=== PATIENT | female | born 1960 | race Caucasian/White ===

== ENCOUNTER 2017-04-19 12:16 | Emergency (ER) | payer OTHER ==
--- NOTE | 2017-04-19 12:43 | ED Physician Documentation ---
General Adult - HISTORIAN Historian: patient - HPI Stated Complaint: cough, congestion Chief Complaint: General Adult Onset: hours Timing: still present Severity: moderate Further Comments: yes (Pt is a 56 yo female dx'd with influenza and started on Tamiflu 3 days ago. Other household members also have flu. Pt continues to have cough, throat irritation 2nd to coughing, body aches, malaise. Pt also c/ o sinus pressure/congestion.) - ROS CONST: chills, other (malaise) EYES/ENT: sore throat (2nd to coughing) CVS/RESP: cough GI/: none MS/SKIN/LYMPH: none - PAST HX Past History: other (hysterectomy, breast reduction) Allergies/Adverse Reactions: Allergies Allergy/AdvReac Type Severity Reaction Status Date / Time iodine Allergy Verified 04/19/17 12:25 Home Medications: Ambulatory Orders Medication Instructions Recorded Ranitidine HCl 150 mg PO DAILY u2 04/16/17 - SOCIAL HX Smoking History: non-smoker - FAMILY HX Family History: No - VITAL SIGNS Vital Signs: Vital Signs Temp Pulse Resp BP Pulse Ox 99.2 F 109 H 18 135/97 97 04/19/17 12:28 04/19/17 12:28 04/19/17 12:28 04/19/17 12:28 04/19/17 12:28 - REVIEWED ASSESSMENTS Nursing Assessment Reviewed: Yes Vitals Reviewed: Yes Progress - Progress Progress: NS 1 L IVF in ER Rx Z-amena. Use as directed on package. Rx Flonase. 1 sprays in each nostril twice daily. Robitussin AC (with codeine). Take 5 or 10 ml (one or two teaspoons) by mouth every 4 to 6 hrs as needed for cough. Chloraseptic spary. Available over the counter. Nasal washes 1 or 2 times daily as tolerated. Available over the counter. General Adult Physical Exam - PHYSICAL EXAM GENERAL APPEARANCE: moderate distress EENT: pharynx normal NECK: normal inspection, supple RESPIRATORY: no resp distress, chest non-tender CVS: tachycardia ABDOMEN: soft, no organomegaly, normal bowel sounds BACK: normal inspection, no CVA tenderness SKIN: warm/dry, normal color EXTREMITIES: non-tender, normal range of motion, no edema NEURO: oriented X3, motor nml, sensation nml Discharge Clincal Impression: Influenza A, dehydration, Cough Sinusitis Qualifiers: Sinusitis location: maxillary Chronicity: acute Recurrence: not specified as recurrent Qualified Code(s): J01.00 - Acute maxillary sinusitis, unspecified Referrals: Primary Doctor,No [Primary Care Provider] - Condition: Good Disposition: 01 HOME, SELF-CARE Decision to Admit: NO Decision Time: 15:15
--- NOTE | 2017-04-19 13:34 | Diagnostic Imaging Report ---
[facility] [address] [facility] [address] Report Submission Date: Apr 19, 2017 1:13:08 PM [employer] Patient Study Name: BALTAZAR NELSON Date: Apr 19, 2017 12:50:30 PM [employer] Modality Type: CR Gender: F Description: CHEST : 58 Institution: [facility] Physician: FARAZ BADILLO Examination: PA and lateral chest. History: Evaluate lung harry. Comparison exam: None provided. Findings: PA lateral chest demonstrate a mildly hypoventilated inspiratory effort. Mild crowding of the right hilar vasculature. Normal cardiac and mediastinal silhouette. No focal infiltrate. No blunting of the costophrenic margins. Osseous structures are appropriate for age. Impression: No acute appearing pulmonary process. Electronically signed on Apr 19, 2017 1:13:08 PM [employer] by: Jasvir DIALLO
[2017-04-19] MEDS ORDERED: 0.9 % SODIUM CHLORIDE 1,000 ML IV ONE ×2 (13:40)
[2017-04-19 15:18] VITALS: BP 126/87
== END 2017-04-19 15:17 | disposition home or self-care (01) ==
LOC: ED 12:16
DX: E86.0 Dehydration (principal); J11.1 Influenza due to unidentified influenza virus with other respiratory manifestations
CPT/HCPCS: 71020; J7030; 96360; 99283; S1016

== ENCOUNTER 2017-06-13 13:14 | Outpatient (CLI) | payer OTHER | END 2017-06-13 13:15 | LOC: LABRHC 13:14 | PROVIDERS: ATTEND Physician Assistant | DX: B83.9 Helminthiasis, unspecified (principal) | CPT/HCPCS: 87177; 87209 ==

== ENCOUNTER 2018-02-27 11:57 | Emergency (ER) | payer OTHER ==
[2018-02-27] MEDS ORDERED: IBUPROFEN 200 MG TABLET PO ONE (12:26)
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
[2018-02-27] MEDS ORDERED: ONDANSETRON HCL 4 MG TAB.RAPDIS PO STA (12:29)
[2018-02-27 13:58] VITALS: BP 156/72
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
== END 2018-02-27 13:55 | disposition home or self-care (01) ==
LOC: ED 11:57
DX: S16.1XXA Strain of muscle, fascia and tendon at neck level, initial encounter (principal); R11.0 Nausea; V49.49XA Driver injured in collision with other motor vehicles in traffic accident, initial encounter; Y93.89 Activity, other specified; Y92.488 Other paved roadways as the place of occurrence of the external cause
CPT/HCPCS: 72040; 99282; 99283; A9270